=== PATIENT | male | born 1990 | race Two or more races ===

== ENCOUNTER 2017-11-12 17:54 | Emergency (ER) | payer SELFPAY ==
[~2017-11-12] VITALS: Ht 167.6 cm; Wt 70.3 kg
[2017-11-12 18:03] VITALS: BP 180/106
== END 2017-11-12 21:09 | disposition left against medical advice (07) ==
LOC: ER 17:54
DX: R07.9 Chest pain, unspecified (principal); Z53.21 Procedure and treatment not carried out due to patient leaving prior to being seen by health care provider
CPT/HCPCS: 71046; 93005